=== PATIENT | female | born 1990 | race Two or more races ===

== ENCOUNTER 2019-07-07 09:33 | Inpatient (IN) | payer MEDICAID ==
[~2019-07-07] VITALS: Ht 1 cm; Wt 0.5 kg
[~2019-07-07 09:33] MED LIST: PREN-125 PO
[2019-07-07] MEDS ORDERED: LACT. RINGERS/OXYTOCIN 20UNITS 1,000 ML IV SCH (12:36)
[2019-07-07] MEDS ORDERED: LACTATED RINGER'S 1,000 ML IV SCH (12:36)
[2019-07-07] MEDS ORDERED: NALBUPHINE HCL 10 MG/1ml INJECTION IV PRN (12:45)
[2019-07-07] MEDS ORDERED: PHISODERM TOP SOLN 240ML BTL TOP PRN (12:45)
[2019-07-07] MEDS ORDERED: LIDOCAINE 2%HCL (LOCAL ANESTH.) INJ 20ML MDV ID ONE (12:45)
[2019-07-07] MEDS ORDERED: DERMOPLAST 60ML BOTTLE TOP PRN (12:45)
[2019-07-07] MEDS ORDERED: WITCH HAZEL-GLYCERIN PAD TOP PRN (12:45)
[2019-07-07 13:35] LABS: Basophils # (auto) 0 uL; Basophils % (auto) 0.2 % (0.0-2.0); Eosinophils # (auto) 0 uL; Lymphocytes # (auto) 0.9 uL; Neutrophils # (auto) 8.6 uL
[2019-07-07 13:37] LABS: Hematocrit 38.1 % (36.0-46.0); Hemoglobin 13.4 g/dL (12.2-16.2); Mean Corpuscular Hemoglobin 35.6 pg (28.0-32.0); Mean Corpuscular Hgb Conc. 35.1 g/dL (32.0-36.0); Mean Corpuscular Volume 101.3 fL (80.0-100.0); Monocytes # (auto) 0.5 uL; Monocytes % (auto) 5.4 % (0.0-12.0); Neutrophils % (auto) 85.4 % (37.0-80.0); Platelet Count (auto) 94 10^3/uL (140-450); Red Blood Cells 3.76 10^6/uL (4.0-5.20); Red Cell Distribution Width 13.4 % (11.8-14.3)
[2019-07-07] MEDS ORDERED: PROMETHAZINE HCL 25 MG/ML 1ML IM ONE (13:45)
[2019-07-07 13:51] LABS: Albumin 3.2 g/dL (3.4-5.0); BUN/Creatinine Ratio 17.5; Calcium 8.7 mg/dL (8.5-10.1); Potassium 3.4 mmol/L (3.5-5.1)
[2019-07-07 13:52] LABS: INR < 0.93 (0.9-1.15)
[2019-07-07 13:53] LABS: Bilirubin, Total 0.5 mg/dL (0.2-1.0); Total Protein 7.1 g/dL (6.4-8.2)
[2019-07-07 14:06] LABS: Urine Bacteria NONE SEEN /hpf (None Seen); Urine Blood 1+ /uL (Negative); Urine Mucus FEW (None Seen); Urine Specific Gravity 1.016 (1.001-1.035); Urine WBC 1 /hpf (0 - 5)
[2019-07-07 14:13] LABS: Alcohol, Urine < 3.0 mg/dL (0-5); Amphetamine Screen, Urine NEGATIVE (NEGATIVE); Barbiturate Scree,Urine NEGATIVE (NEGATIVE); Benzodiazephine Screen, Urine NEGATIVE (NEGATIVE); Cannabinoid Screen, Urine NEGATIVE (NEGATIVE); Cocaine Screen, Urine NEGATIVE (NEGATIVE); Opiate Scree,Urine NEGATIVE (NEGATIVE); Phencyclidine Screen, Urine NEGATIVE (NEGATIVE)
[2019-07-07] MEDS ORDERED: LACT. RINGERS/OXYTOCIN 20UNITS 500 ML IV ONE (16:03)
--- NOTE | 2019-07-07 16:21 | NUR ---
Teaching: Reviewed information in [employer] booklet with patient. Discussed benefits of and risks associated with not . Discussed different positions, proper latch, feeding cues, and baby-led . Provided information of medication side effects related to . All questions and concerns addressed at this time. Patient verbalized understanding of information.
[2019-07-07] MEDS: IBUPROFEN 600 MG TAB PO PRN ×2 (16:41→23:11)
[2019-07-07] MEDS ORDERED: TETANUS-DIPTH-ACEL PERTUSSIS 0.5ML SYRG IM ONE (17:15)
--- NOTE | 2019-07-07 17:43 | NUR ---
Ambulation: Patient OOB with standby assistance by RN. Patient ambulated to bathroom with steady gait. Patient able to void without difficulty. [facility] teaching provided with returned demonstration by patient. Clean gown provided and bed linen changed. Patient ambulated back to bed with steady gait and no distress noted. void 900 ml
--- NOTE | 2019-07-07 18:30 | NUR ---
Opening Shift Note Received report from MARIE Davidson and assumed care of patient, awake and alert. No S/S of distress/SOB or pain. Instructed to call for assist if needed and patient verbalized understanding. Will continue to monitor.
[2019-07-07 19:00] VITALS: BP 100/56
[2019-07-07 22:53] VITALS: BP 90/55
--- NOTE | 2019-07-07 23:00 | NUR ---
Ambulation: Patient OOB and ambulated to bathroom with steady gait. Patient able to void without difficulty. Patient ambulated back to bed with steady gait and no distress noted.
[2019-07-08 03:16] VITALS: BP 95/50
[2019-07-08 06:06] LABS: RPR Non Reactive (Non Reactive)
[2019-07-08 06:30] VITALS: BP 97/55
[2019-07-08] MEDS: IBUPROFEN 600 MG TAB PO PRN ×2 (06:54→15:46)
[2019-07-08 11:25] VITALS: BP 97/55
[2019-07-08 15:22] VITALS: BP 108/60
--- NOTE | 2019-07-08 18:05 | NUR ---
Discharge: Discharge instructions given as ordered. Pt encouraged to follow up with [facility] as instructed. All questions and concerns addressed. Patient verbalized understanding. Medication reconciliation completed and copy given to patient. PATIENT REFUSED VACCINES Patient encouraged to prepare to depart unit.
--- NOTE | 2019-07-08 18:38 | NUR ---
Discharge: Patient taken to vehicle via steady ambulation with all personal belongings, accompanied by staff and family member. No distress noted at time of departure, no adverse changes in status since initial assessment.
== END 2019-07-08 18:38 | disposition home or self-care (01) | DRG 560 ==
LOC: LDRP 09:33 → OBSVTOIN 11:58 → LDRP 22:01
PROVIDERS: ADMIT Specialist; ATTEND Specialist
PROC: 10E0XZZ Delivery of Products of Conception, External Approach (ICD-10-PCS; principal; 2019-07-07)
PROC: 10907ZC Drainage of Amniotic Fluid, Therapeutic from Products of Conception, Via Natural or Artificial Opening (ICD-10-PCS; 2019-07-07)
PROC: 3E0234Z Introduction of Serum, Toxoid and Vaccine into Muscle, Percutaneous Approach (ICD-10-PCS; 2019-07-07)
PROC: 0KQM0ZZ Repair Perineum Muscle, Open Approach (ICD-10-PCS; 2019-07-07)
DX: O69.81X0 Labor and delivery complicated by cord around neck, without compression, not applicable or unspecified (principal); O70.1 Second degree perineal laceration during delivery; Z37.0 Single live birth; Z3A.39 39 weeks gestation of pregnancy; Z23 Encounter for immunization
CPT/HCPCS: 36415; 59025; 59409; 80053; 80307; 81001; 81002; 84112; 85025; 85610; 85730; 86592; 86850; 86900; 86901; 90715; 96361; 96365; 96366; G0378; J2590